=== PATIENT | female | born 1955 | race Caucasian/White ===

== ENCOUNTER 2019-08-24 19:26 | Emergency (ER) | payer OTHER ==
[~2019-08-24] VITALS: Ht 157.5 cm; Wt 88.9 kg
[~2019-08-24 19:26] MED LIST: ALBU90OI6 INH; Aldactone25 MG PO; BENAML10/2 PO; CIPR500 PO; DIGOX250 MCG PO; FURO40 PO; HYDMOR2 PO; IBUP800 PO; LEVFLO250 PO; LISI5 PO; METO50ER PO; NAPROXEN; OXYACE5T PO; POTCHL20ER PO; PROM25 PO; RXHYDMOR2 PO; RXOXYACE PO; RXPROM25 PO
[2019-08-24] MEDS ORDERED: PANT20 PO (19:35)
[2019-08-24] MEDS ORDERED: GLIP10 PO (19:36)
[2019-08-24] MEDS ORDERED: METF500 PO (19:36)
[2019-08-24] MEDS ORDERED: ROSU10TA PO (19:36)
[2019-08-24] MEDS ORDERED: ENTRESTO 97 MG1 EACH PO (19:37)
[2019-08-24] MEDS ORDERED: SITA100T2 PO (19:37)
[2019-08-24] MEDS ORDERED: TORS10 PO (19:37)
[2019-08-24] MEDS ORDERED: ASPI81CH PO (19:42)
== END 2019-08-24 21:30 | disposition home or self-care (01) ==
LOC: ER 19:26
DX: S53.001A Unspecified subluxation of right radial head, initial encounter (principal); I11.0 Hypertensive heart disease with heart failure; I50.9 Heart failure, unspecified; E11.9 Type 2 diabetes mellitus without complications; Z88.5 Allergy status to narcotic agent; Z79.899 Other long term (current) drug therapy; X58.XXXA Exposure to other specified factors, initial encounter
CPT/HCPCS: 24600; 73080; 96372-59; 99283-25; J3010

== ENCOUNTER → 2022-06-19 | Outpatient (CLI) | payer MEDICARE, BC ==
[~2022-06-19] MED LIST changes: +ASPI81CH PO; +ENTRESTO 97 MG1 EACH PO; +GLIP10 PO; +METF500 PO; +PANT20 PO; +ROSU10TA PO; +SITA100T2 PO; +TORS10 PO
== END | disposition home or self-care (01) ==
LOC: LAB SHORT 16:15 → LAB 16:15
DX: R10.9 Unspecified abdominal pain (principal)
CPT/HCPCS: 87086

== ENCOUNTER → 2023-02-19 | Outpatient (CLI) | payer MEDICARE, BC ==
[2023-02-19 12:55] LABS: Uric Acid, Blood 7.5 mg/dL (2.6-6.0)
[2023-02-19 12:56] LABS: Albumin, Blood 3.6 g/dL (3.4-5.0); Albumin/Globulin Ratio 0.8 (0.8-1.8); Bilirubin, Total 0.8 mg/dL (0.1-1.0); Bun/Creatinine Ratio 13.3 (12.0-20.0); C-REACTIVE PROTEIN, EXT RANGE 5.12 mg/dL (0.000-0.300); Calcium, Blood 9.3 mg/dL (8.5-10.1); Creatinine, Blood 1.2 mg/dL (0.40-1.00); Globulin, Blood 4.4 g/dL (2.2-4.0); Potassium, Blood 3.9 mmol/L (3.5-5.5)
[2023-02-19 12:57] LABS: BASOPHILS ABSOLUTE AUTO 0.04 K/mm3 (0.00-0.23); BASOPHILS PERCENT AUTO 0 % (0-2); EOSINOPHILS PERCENT AUTO 1 % (0-6); Hematocrit 45.8 % (33.0-51.0); Hemoglobin 14.7 g/dL (11.5-16.0); IMMATURE GRAN ABSOLUTE AUTO 0.04 K/mm3 (0.00-0.10); IMMATURE GRAN PERCENT AUTO 0 % (0-1); LYMPHOCYTES ABSOLUTE AUTO 1.76 K/mm3 (0.84-5.20); LYMPHOCYTES PERCENT AUTO 17 % (21-46); MONOCYTES ABSOLUTE AUTO 0.63 K/mm3 (0.16-1.47); MONOCYTES PERCENT AUTO 6 % (4-13); Mean Corpuscular HGB 28.6 pg (26.0-34.0); Mean Corpuscular HGB Conc 32.1 g/dL (31.5-36.5); Mean Corpuscular Volume 89 fL (80-100); Mean Platelet Volume 12.2 fL (9.1-12.4); NEUTROPHILS ABSOLUTE AUTO 7.68 K/mm3 (1.96-9.15); NEUTROPHILS PERCENT AUTO 75 % (41-73); Platelet Count 225 K/mm3 (150-400); RDW Coefficient Variation 13.2 % (11.7-14.2); RDW Standard Deviation 43.4 fL (35.1-46.3); Red Blood Cell Count 5.14 M/mm3 (3.80-5.20); White Blood Cell Count 10.25 K/mm3 (4.00-11.30)
== END ==
LOC: LAB 11:35 → LAB SHORT 11:35
PROVIDERS: Family Medicine
DX: M10.9 Gout, unspecified (principal)
CPT/HCPCS: 80053; 84550; 85025; 86140

== ENCOUNTER 2023-05-25 12:03 | Inpatient (IN) | payer MEDICARE, BC ==
[~2023-05-25] VITALS: Ht 157.5 cm; Wt 93.4 kg
[~2023-05-25 12:03] MED LIST changes: -GLIP10 PO; +GLIP5 PO
[2023-05-25 14:00] LABS: BASOPHILS ABSOLUTE AUTO 0.04 K/mm3 (0.00-0.23); BASOPHILS PERCENT AUTO 0 % (0-2); EOSINOPHILS ABSOLUTE AUTO 0.07 K/mm3 (0.00-0.68); EOSINOPHILS PERCENT AUTO 1 % (0-6); Hematocrit 44.2 % (33.0-51.0); Hemoglobin 14.4 g/dL (11.5-16.0); IMMATURE GRAN ABSOLUTE AUTO 0.04 K/mm3 (0.00-0.10); IMMATURE GRAN PERCENT AUTO 0 % (0-1); LYMPHOCYTES ABSOLUTE AUTO 1.72 K/mm3 (0.84-5.20); LYMPHOCYTES PERCENT AUTO 13 % (21-46); MONOCYTES ABSOLUTE AUTO 0.66 K/mm3 (0.16-1.47); MONOCYTES PERCENT AUTO 5 % (4-13); Mean Corpuscular HGB 28.7 pg (26.0-34.0); Mean Corpuscular HGB Conc 32.6 g/dL (31.5-36.5); Mean Corpuscular Volume 88 fL (80-100); Mean Platelet Volume 12.2 fL (9.1-12.4); NEUTROPHILS ABSOLUTE AUTO 10.84 K/mm3 (1.96-9.15); NEUTROPHILS PERCENT AUTO 81 % (41-73); Platelet Count 225 K/mm3 (150-400); RDW Coefficient Variation 13.1 % (11.7-14.2); RDW Standard Deviation 42.1 fL (35.1-46.3); Red Blood Cell Count 5.01 M/mm3 (3.80-5.20); White Blood Cell Count 13.37 K/mm3 (4.00-11.30)
[2023-05-25 14:16] LABS: Albumin, Blood 3.1 g/dL (3.4-5.0); Albumin/Globulin Ratio 0.9 (0.8-1.8); Bilirubin, Total 0.6 mg/dL (0.1-1.0); Bun/Creatinine Ratio 10.7 (12.0-20.0); Calcium, Blood 8.7 mg/dL (8.5-10.1); Creatinine, Blood 1.12 mg/dL (0.40-1.00); Globulin, Blood 3.6 g/dL (2.2-4.0); Magnesium, Blood 1.3 mg/dL (1.6-2.4); Potassium, Blood 3.8 mmol/L (3.5-5.5); Total Protein, Blood 6.7 g/dL (6.4-8.2)
[2023-05-25 18:41] VITALS: BP 152/78
[2023-05-25] MEDS ORDERED: ELIQUIS5 M3 PO (20:09)
[2023-05-25 20:34] VITALS: BP 125/90
[2023-05-25 22:12] LABS: Anti-Xa UFH, PHA Monitoring 0.97 IU/mL; International Normalized Ratio 1.07; Prothrombin Time Results 11.2 Sec (9.7-11.5)
[2023-05-25 23:06] VITALS: BP 128/74
[2023-05-26] VITALS (8 sets, daily range): BP systolic 122–159; BP diastolic 65–109
--- NOTE | 2023-05-26 05:24 | NUR ---
SHIFT SUMMARY A/Ox4 AND COOPERATIVE WITH CARE. ANSWERS QUESTIONS APPROPRIATELY AND ABLE TO MAKE HER NEEDS KNOWN. CARDIAC, REMAINS IN PACED RYTHM 70-80's WITH NO REPORTS OF CP, PRESSURE, OR DIZZINESS T/O THE NIGHT. SBP REMAINS STABLE RANGING 120's. RESPIRATORY, MAINTAINS SPO2 >95% ON RA WITH NO REPORTS OF SOB OR DYSPNEA AT REST. GI/, ABLE TO AMBULATE TO BATHROOM VIA SBA WITH NO REPORTS OF BM THIS SHIFT. TRENDED [facility] DURING THE NIGHT WITH DR. VASQUEZ BEING UPDATED WITH ALL CRITICAL VALUES. CARDIOLOGY HAS BEEN CONSULTED VIA ANSWERING SERVICE. HEPARIN gtt HAS BEEN RUNNING T/O THE NIGHT ORDERED VIA EMAR. ASSESSED PT FOR RISKS OF ANY IGNITION SOURCES WELL BEHAVIORS FOR INCREASED RISKS OF FIRE DANGER. PT EDUCATED ON COMMON SOURCES OF IGNITION WELL NEED TO KEEP A SAFE ENVIRONMENT. PT VOICED UNDERSTANDING. NO NEW ORDERS AT THIS TIME, WILL REPORT TO ONCOMING RN. OTIS BARTH OF THIS NOTE.
[2023-05-26 05:36] LABS: BASOPHILS ABSOLUTE AUTO 0.03 K/mm3 (0.00-0.23); BASOPHILS PERCENT AUTO 0 % (0-2); EOSINOPHILS PERCENT AUTO 2 % (0-6); Hematocrit 43.2 % (33.0-51.0); Hemoglobin 13.9 g/dL (11.5-16.0); IMMATURE GRAN ABSOLUTE AUTO 0.02 K/mm3 (0.00-0.10); IMMATURE GRAN PERCENT AUTO 0 % (0-1); LYMPHOCYTES ABSOLUTE AUTO 2.55 K/mm3 (0.84-5.20); LYMPHOCYTES PERCENT AUTO 26 % (21-46); MONOCYTES PERCENT AUTO 7 % (4-13); Mean Corpuscular HGB Conc 32.2 g/dL (31.5-36.5); Mean Corpuscular Volume 90 fL (80-100); Mean Platelet Volume 11.6 fL (9.1-12.4); NEUTROPHILS ABSOLUTE AUTO 6.43 K/mm3 (1.96-9.15); NEUTROPHILS PERCENT AUTO 65 % (41-73); Platelet Count 199 K/mm3 (150-400); RDW Coefficient Variation 13.2 % (11.7-14.2); RDW Standard Deviation 43.6 fL (35.1-46.3); White Blood Cell Count 9.93 K/mm3 (4.00-11.30)
[2023-05-26 05:57] LABS: Bun/Creatinine Ratio 12.9 (12.0-20.0); Calcium, Blood 8.8 mg/dL (8.5-10.1); Creatinine, Blood 1.24 mg/dL (0.40-1.00); Potassium, Blood 3.7 mmol/L (3.5-5.5)
--- NOTE | 2023-05-26 17:22 | NUR ---
NO ACUTE CHANGES, SEE PREVIOUS NOTES. PT RESTING IN BED, CALL LIGHT WITHIN REACH.
[2023-05-27 04:11] VITALS: BP 131/76
[2023-05-27 04:49] LABS: Bun/Creatinine Ratio 12.7 (12.0-20.0); Calcium, Blood 8.7 mg/dL (8.5-10.1); Creatinine, Blood 1.18 mg/dL (0.40-1.00); Magnesium, Blood 1.8 mg/dL (1.6-2.4); Potassium, Blood 4.1 mmol/L (3.5-5.5)
--- NOTE | 2023-05-27 05:14 | NUR ---
SHIFT SUMMARY A/Ox4 AND COOPERATIVE WITH CARE. ANSWERS QUESTIONS APPROPRIATELY AND ABLE TO MAKE HER NEEDS KNOWN. CARDIAC, REMAINS IN PACED RYTHM 60-80's WITH NO REPORTS OF CP, PRESSURE, OR DIZZINESS T/O THE NIGHT. SBP REMAINS STABLE RANGING 120-130's. RESPIRATORY, MAINTAINS SPO2 >95% ON RA WITH NO REPORTS OF SOB OR DYSPNEA AT REST. GI/, ABLE TO AMBULATE TO BATHROOM WITHOUT NEED FOR STAFF ASSISTANCE. HEPARIN gtt HAS BEEN TURNED OFF WITH ADMINISTRATION OF PT's ELIQUIS PER ORDERS. PT STARTED ON PO AMIO WITH FIRST DOSE GIVEN DURING DAYSHI. PT S PACER TO BE EXAMINED IN THE MORNING WITH POTENTIAL D/C THIS AM. ASSESSED PT FOR RISKS OF ANY IGNITION SOURCES WELL BEHAVIORS FOR INCREASED RISKS OF FIRE DANGER. PT EDUCATED ON COMMON SOURCES OF IGNITION WELL NEED TO KEEP A SAFE ENVIRONMENT. PT VOICED UNDERSTANDING. NO NEW ORDERS AT THIS TIME, WILL REPORT TO ONCOMING RN. OTIS BARTH OF THIS NOTE.
[2023-05-27 07:11] VITALS: BP 117/85
--- NOTE | 2023-05-27 08:15 | NUR ---
Received report from Luther RN in room . Patient is alert and oriented and is able to commuinicate her needs. She is independnet in bed and in room.She is 100% v paced. She has been asymptomatic since in PCU. VS stable. MAEW. She is on RA and sats >90%. She has been on phone talking with family. Patient denies any pain or needs.
--- NOTE | 2023-05-27 11:01 | NUR ---
Patient is being discharged home. Dr Friend has been in to assess and is discharging patient. She remains independnet in bed and in room to bathroom . She MAEW. VS stable. She remains at 100% V paced and has had no arrythmias. Patient tolerated meds and breakfast well. She is up in batheroom getting ready to go home.
[2023-05-27] MEDS ORDERED: Amiodarone HCl200 MG PO (11:18)
[2023-05-27] MEDS ORDERED: AMIODARONE HCL200 M1 PO (11:18)
[2023-05-27] MEDS ORDERED: K-Dur10 MEQ PO (11:22)
[2023-05-27] MEDS ORDERED: SOAANZ20 M1 PO (11:23)
--- NOTE | 2023-05-27 11:38 | NUR ---
Patient got dressed and i removed IV intact ands site WNL's. She was given written discharge instructions and returned understanding of all info including new and stop meds. She gathered all her belongings and was taken out to [facility] and went home POV.
== END 2023-05-27 11:35 | disposition home or self-care (01) | DRG 309 ==
LOC: ER 12:03 → PCU 12:04
PROVIDERS: Internal Medicine Cardiovascular Disease; Pharmacist; Student in an Organized Health Care Education/Training Program; ADMIT Hospitalist
DX: I47.20 Ventricular tachycardia, unspecified (principal); I13.0 Hypertensive heart and chronic kidney disease with heart failure and stage 1 through stage 4 chronic kidney disease, or unspecified chronic kidney disease; I42.0 Dilated cardiomyopathy; I50.22 Chronic systolic (congestive) heart failure; I48.0 Paroxysmal atrial fibrillation; R77.8 Other specified abnormalities of plasma proteins; R42 Dizziness and giddiness; E78.5 Hyperlipidemia, unspecified; E03.9 Hypothyroidism, unspecified; E87.6 Hypokalemia; E66.9 Obesity, unspecified; E83.42 Hypomagnesemia; E11.22 Type 2 diabetes mellitus with diabetic chronic kidney disease; N18.31 Chronic kidney disease, stage 3a; E11.59 Type 2 diabetes mellitus with other circulatory complications; Z95.0 Presence of cardiac pacemaker; Z79.899 Other long term (current) drug therapy; Z79.84 Long term (current) use of oral hypoglycemic drugs; Z88.5 Allergy status to narcotic agent; Z79.82 Long term (current) use of aspirin; Z98.890 Other specified postprocedural states; Z79.01 Long term (current) use of anticoagulants; Z68.31 Body mass index [BMI] 31.0-31.9, adult
CPT/HCPCS: 36415; 71045; 80048; 80053; 80162; 82947; 83036; 83735; 84443; 84484; 85025; 85520; 85610; 85730; 93005; 93010; 96365; 96366; 96372; 96374; 96375; 96376; 99285-25; A9270; G0378; J1644; J3475

== ENCOUNTER 2025-05-23 18:29 | Emergency (ER) | payer MEDICARE, BC ==
[~2025-05-23] VITALS: Ht 157.5 cm; Wt 92.1 kg
[~2025-05-23 18:29] MED LIST changes: +AMIODARONE HCL200 M1 PO; +Amiodarone HCl200 MG PO; +ELIQUIS5 M3 PO; +K-Dur10 MEQ PO; +SOAANZ20 M1 PO
[2025-05-23 21:15] VITALS: BP 131/89
== END 2025-05-23 21:26 | disposition home or self-care (01) ==
LOC: ER 18:29
DX: R51.9 Headache, unspecified (principal); W18.09XA Striking against other object with subsequent fall, initial encounter; I10 Essential (primary) hypertension; E11.9 Type 2 diabetes mellitus without complications; Z88.5 Allergy status to narcotic agent; Z88.8 Allergy status to other drugs, medicaments and biological substances; Z79.84 Long term (current) use of oral hypoglycemic drugs; Z79.899 Other long term (current) drug therapy; Z95.0 Presence of cardiac pacemaker
CPT/HCPCS: 70450; 99284-25